=== PATIENT | female | born 1950 | race African-American/Black ===

== ENCOUNTER 2025-03-17 14:23 | Outpatient (CLI) | payer OTHER ==
[2025-03-17] MEDS ORDERED: Iopamidol-370 76% 500 ML MDV (1 ML CHARGE) ONE (16:25)
== END 2025-03-17 14:24 | disposition home or self-care (01) ==
LOC: CSHCT 14:23
PROVIDERS: ATTEND Specialist
DX: C50.911 Malignant neoplasm of unspecified site of right female breast (principal); R59.0 Localized enlarged lymph nodes; R91.8 Other nonspecific abnormal finding of lung field
CPT/HCPCS: 71260; 74177; Q9967